=== PATIENT | female | born 1990 | race Caucasian/White ===

== ENCOUNTER 2017-05-22 17:47 | Emergency (ER) | payer BC ==
--- NOTE | ~2017-05-22 | EKG ---
PATIENT: CATHLEEN METZ UNIT #: [id number] Ventricular Rate: 69 BPM Atrial Rate: 69 BPM P-R Interval: 154 ms QRS Duration: 86 ms Q-T Interval: 396 ms QTC Calculation(Bezet): 424 ms P [place]: 48 degrees Calculated R [place]: 54 degrees Calculated T [place]: 28 degrees Diagnosis Line: Normal sinus rhythm Diagnosis Line: Normal ECG Diagnosis Line: When compared with ECG of 14-NOV-2016 20:31, Diagnosis Line: No significant change was found Diagnosis Line: Confirmed by BENNY FRYE MD ([id number]) on Diagnosis Line: 05/23/2017 4:05:03 PM INTERPRETING MD: MELVA HAM
--- NOTE | ~2017-05-22 | CR72 ---
[facility] A Service of [facility] & [facility] / [facility] RADIOLOGY TEXT RESULTS PATIENT: CATHLEEN METZ LOCATION: SED : [birth year] UNIT #: [id number] AGE: [address]: Jose David Ceballos MD SEX: F ORDER DR: [id number] [address] [address] [id number] E MR#: [id number] Acc #: [id number] NAME: CATHLEEN METZ : 1990 SEX: F STUDY DATE/TIME: 05/22/2017 18:24 UNIT: SED ROOM: STUDY DESCRIPTION: CR Chest Single View Portable Attending Physician: Jose David Ceballos M.D. Ordering Physician: Jose David Ceballos M.D. Primary Care Physician: Allegra Esparza Aprn MEDICAL IMAGING REPORT This report is preliminary unless electronic signature is present. EXAM Portable chest HISTORY Chest pain for 3 days. No injury. FINDINGS Cardiac size and pulmonary vascularity are within normal limits, allowing for shallow inspiration. Underpenetration of the lung bases limits sensitivity, but no infiltrates or effusions are identified. IMPRESSION Negative. Dictated by... Luis Smith M.D. THIS IS AN ELECTRONICALLY VERIFIED REPORT Luis Smith M.D. at 05/22/2017 11:23 PM DFL/psc TD: 05/22/2017 20:56 JOB #: [id number] MEDICAL IMAGING REPORT Page 1 of 1
[~2017-05-22 17:47] MED LIST: AMOXICILLIN PO; DICLEGIS DR 101 EACH PO; IBUPROFEN800 MG PO; METHADONE PO; NO MEDICATIONS; PREDNISONE PO; ROBAXIN500 MG PO; VICODIN PO
== END 2017-05-22 19:20 | disposition home or self-care (01) ==
LOC: SED 17:47
DX: R07.89 Other chest pain (principal); F41.9 Anxiety disorder, unspecified; F17.200 Nicotine dependence, unspecified, uncomplicated; Z98.890 Other specified postprocedural states; Z79.899 Other long term (current) drug therapy
CPT/HCPCS: 71010; 93005; 96372; 99285; J1885